=== PATIENT | male | born 1985 | race Caucasian/White ===

== ENCOUNTER 2017-08-02 16:40 | Emergency (ER) | payer BC ==
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
[2017-08-02] MEDS: Sodium Chloride 0.9% 1,000 ML IV ONE (18:00)
[2017-08-02] MEDS: Ondansetron 4 MG/2 ML SDV IVPUSH ONE (18:04)
[2017-08-02] MEDS: Morphine 2 MG/ML Syringe IVPUSH ONE (18:04)
[2017-08-02] MEDS: Ketorolac 30 MG/ML SDV IVPUSH ONE (18:27)
== END 2017-08-02 19:05 | disposition home or self-care (01) ==
LOC: KA.ED 16:40
DX: S40.011A Contusion of right shoulder, initial encounter (principal); S70.01XA Contusion of right hip, initial encounter; G44.319 Acute post-traumatic headache, not intractable; R07.81 Pleurodynia; F17.210 Nicotine dependence, cigarettes, uncomplicated; V86.95XA Unspecified occupant of 3- or 4- wheeled all-terrain vehicle (ATV) injured in nontraffic accident, initial encounter
CPT/HCPCS: 70450; 71101-RT; 72125; 73030-RT; 96361; 96374; 96375; 99284; J1885; J2270; J2405; J7030

== ENCOUNTER 2018-11-14 22:06 | Emergency (ER) | payer BC ==
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
[2018-11-14] MEDS ORDERED: Ketorolac 60 MG/2 ML SDV IM ONE (22:51)
--- NOTE | 2018-11-15 07:42 | CR ---
[id number] RAD/RAD Ribs Left W PA Chest Exam: RAD Ribs Left W PA Chest Clinical Data: TRAUMA COMPARISON: CORRELATION IS MADE WITH THE CHEST RADIOGRAPH OF AUGUST 02, 2017. FINDINGS: The lungs are clear. There is no pneumothorax. There is no obvious recent left rib fracture. The cardiomediastinal contour is stable. IMPRESSION: NEGATIVE EXAM. Zan Steven MD 11/15/18 0741 Thank you for allowing us to participate in the care of your patient.
--- NOTE | 2018-11-15 07:43 | CR ---
[id number] RAD/RAD Lumbar Spine 2-3V EXAM: AP AND LATERAL LUMBAR SPINE. INDICATION: TRAUMA COMPARISON: NO PREVIOUS SIMILAR EXAM IS AVAILABLE FOR COMPARISON. FINDINGS: No fracture is seen. There are mild degenerative changes at lumbosacral junction. 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 IMPRESSION: NO ACUTE FRACTURE OR SUBLUXATION. Zan Steven MD 11/15/18 0742 Thank you for allowing us to participate in the care of your patient.
--- NOTE | 2018-11-15 07:43 | CR ---
[id number] RAD/RAD Tibia Fibula Left EXAM: RAD Tibia Fibula Left CLINICAL DATA: TRAUMA COMPARISON: NO PREVIOUS SIMILAR EXAM IS AVAILABLE. FINDINGS: No fracture or dislocation is seen. There is no radiopaque foreign body in the soft tissues. There is no air in the soft tissues. There is no cortical thickening or periosteal reaction either. IMPRESSION: NEGATIVE PLAIN FILM EXAM. Zan Steven MD 11/15/18 0742 Thank you for allowing us to participate in the care of your patient.
--- NOTE | 2018-11-15 07:44 | CR ---
[id number] RAD/RAD Foot Left 2V EXAM: RAD Foot Left 2V CLINICAL DATA: TRAUMA COMPARISON: NO PREVIOUS SIMILAR EXAM IS AVAILABLE. FINDINGS: No fracture or dislocation is seen. There is no radiopaque foreign body in the soft tissues. There is no air in the soft tissues. There is no cortical thickening or periosteal reaction either. IMPRESSION: NEGATIVE PLAIN FILM EXAM. Zan Steven MD 11/15/18 0743 Thank you for allowing us to participate in the care of your patient.
== END 2018-11-14 23:15 | disposition home or self-care (01) ==
LOC: KA.ED 22:06
DX: S30.0XXA Contusion of lower back and pelvis, initial encounter (principal); S20.212A Contusion of left front wall of thorax, initial encounter; S90.02XA Contusion of left ankle, initial encounter; Z79.899 Other long term (current) drug therapy; W17.89XA Other fall from one level to another, initial encounter
CPT/HCPCS: 71101-LT; 72100; 73590-LT; 73620-LT; 81001; 96372; 99283-25; J1885

== ENCOUNTER 2020-04-26 09:50 | Emergency (ER) | payer BC, OTHER ==
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
--- NOTE | 2020-04-26 10:50 | CR ---
[id number] RAD/RAD Ankle Right 3V Min EXAM: 3 VIEWS RIGHT ANKLE. INDICATION: ANKLE PAIN. COMPARISON: None. DISCUSSION: No fracture, dislocation or other acute osseous abnormality. Soft tissue edema adjacent to the lateral malleolus. IMPRESSION: 1. No acute osseous abnormalities. Josef Mattson DO 04/26/20 1049 Thank you for allowing us to participate in the care of your patient.
== END 2020-04-26 11:00 | disposition home or self-care (01) ==
LOC: KA.ED 09:50
DX: S93.401A Sprain of unspecified ligament of right ankle, initial encounter (principal); V29.9XXA Motorcycle rider (driver) (passenger) injured in unspecified traffic accident, initial encounter
CPT/HCPCS: 73610-RT; 99283; 99283-25

== ENCOUNTER 2020-05-13 08:55 | Emergency (ER) | payer BC ==
--- NOTE | 2020-05-13 09:45 | EDM.PDOC ---
ED HPI GENERAL MEDICAL PROBLEM - General Chief Complaint: General Stated Complaint: FEELING ANXIOUS Time Seen by Provider: 05/13/20 09:25 Source of Information: Reports: Patient History Limitations: Reports: No Limitations - History of Present Illness INITIAL COMMENTS - FREE TEXT/NARRATIVE: 34 YO WM PRESENTS TO ER COMPLAINING OF FEELING FATIGUED WITH ASSOCIATED INTERMITTENT SHORTNESS OF BREATH, AND INTERMITTENT NUMBNESS TO LIPS, HANDS AND FEET X 4 DAYS. PT REPORTS HE WAS DIAGNOSED WITH COVID-19 3 WEEKS AGO AND HAS BEEN OFF QUARANTINE FOR THE LAST WEEK. PT DENIES FEVER/CHILLS, NO CHEST PAIN, NO NAUSEA/VOMITING/DIARRHEA. PT REPORTS HISTORY OF ANXIETY AND HAD BEEN ON ZYPREXA IN THE REMOTE PAST. PT CURRENTLY WITHOUT SYMPTOMS AND BELIEVES A LOT OF THIS IS ASSOCIATED WITH HIS ANXIETY. PT REPORTS HE WAS ALSO ON DECADRON AND JUST FINISHED A 5 DAY COURSE OVER THE WEEKEND. PT STATES HE WAS HAVING TROUBLE SLEEPING AND FEELING FUNNY WHILE ON THIS MEDICATION. Onset: Unknown/Unsure Duration: Week(s): (3) Location: Reports: Generalized Severity: Mild Improves with: Reports: None Worsens with: Reports: None Associated Symptoms: Reports: Cough, Malaise, Shortness of Breath. Denies: Chest Pain, Diaphoresis, Fever/Chills, Headaches, Loss of Appetite, Nausea/Vomiting, Rash, Syncope, Weakness - Related Data Allergies Allergy/AdvReac Type Severity Reaction Status Date / Time No Known Drug Allergies Allergy Cannot Verified 05/13/20 09:07 Remember Home Meds: Home Meds Ibuprofen [Motrin] 800 mg PO TID PRN #15 tablet 11/14/18 [Rx] dexAMETHasone [Dexamethasone] 6 mg PO DAILY 05/13/20 [History] Past Medical History - Past Health History Medical/Surgical History: Denies Medical/Surgical History HEENT History: Reports: None Respiratory History: Reports: Other (See Below) Gastrointestinal History: Reports: Other (See Below) Other Gastrointestinal History: colitis Psychiatric History: Reports: Anxiety, Depression, Panic Attack - Infectious Disease History Infectious Disease History: Reports: Chicken Pox - Past Surgical History HEENT Surgical History: Reports: Tonsillectomy GI Surgical History: Reports: None Social & Family History - Family History Family Medical History: No Pertinent Family History - Tobacco Use Tobacco Use Status *Q: Current Every Day Tobacco User Years of Tobacco use: 20 Packs/Tins Daily: 1 - Caffeine Use Caffeine Use: Reports: Coffee, Tea - Alcohol Use Days Per Week of Alcohol Use: 4 Number of Drinks Per Day: 3 Total Drinks Per Week: 12 - Recreational Drug Use Recreational Drug Use: No ED ROS GENERAL - Review of Systems Review Of Systems: See Below Constitutional: Reports: Malaise HEENT: Reports: No Symptoms Respiratory: Reports: Shortness of Breath Cardiovascular: Reports: No Symptoms Endocrine: Reports: No Symptoms GI/Abdominal: Reports: No Symptoms : Reports: No Symptoms Musculoskeletal: Reports: No Symptoms Skin: Reports: No Symptoms Neurological: Reports: Numbness. Denies: Dizziness, Pre-Existing Deficit, Trouble Speaking, Difficulty Walking, Weakness, Change in Speech Psychiatric: Reports: Anxiety. Denies: Depression Hematologic/Lymphatic: Reports: No Symptoms Immunologic: Reports: No Symptoms ED EXAM, GENERAL - Physical Exam Exam: See Below Exam Limited By: No Limitations General Appearance: Alert, WD/WN, No Apparent Distress Eye Exam: Bilateral Eye: PERRL Throat/Mouth: Normal Inspection, Normal Lips, Normal Teeth, Normal Gums, Normal Oropharynx, Normal Voice, No Airway Compromise Head: Atraumatic, Normocephalic Neck: Normal Inspection, Supple, Non-Tender, Full Range of Motion Respiratory/Chest: No Respiratory Distress, Lungs Clear, Normal Breath Sounds, No Accessory Muscle Use, Chest Non-Tender Cardiovascular: Normal Peripheral Pulses, Regular Rate, Rhythm, No Edema, No Gallop, No JVD, No Murmur, No Rub GI/Abdominal: Normal Bowel Sounds, Soft, Non-Tender, No Organomegaly, No Distention, No Abnormal Bruit, No Mass Back Exam: Normal Inspection, Full Range of Motion, NT Extremities: Normal Inspection, Normal Range of Motion, Non-Tender, Normal Capillary Refill, No Pedal Edema Neurological: Alert, Oriented, CN II-XII Intact, Normal Cognition, Normal Gait, Normal Reflexes, No Motor/Sensory Deficits Psychiatric: Normal Affect, Normal Mood Skin Exam: Warm, Dry, Intact, Normal Color, No Rash Lymphatic: No Adenopathy Course - Vital Signs Last Recorded V/S: Last Vital Signs Temp 37.1 C 05/13/20 09:02 Pulse 97 05/13/20 09:29 Resp 18 05/13/20 09:29 BP 134/89 05/13/20 09:29 Pulse Ox 94 L 05/13/20 09:29 - Radiology Interpretation Free Text/Narrative:: CXR- NAD Departure - Departure Time of Disposition: 10:16 Disposition: Home, Self-Care 01 Condition: Good Clinical Impression: Hyperglycemia, Anxiety Medication reaction Qualifiers: Encounter type: initial encounter Qualified Code(s): T50.905A - Adverse effect of unspecified drugs, medicaments and biological substances, initial encounter - Discharge Information Instructions: Hyperglycemia, [id number], Managing Anxiety, Adult, Screening for Type 2 Diabetes Referrals: Antoinette Parra MD [Primary Care Provider] - Forms: ED Department Discharge, ED Return to Work/School Form Additional Instructions: 1. DISCHARGE HOME 2. FOLLOW UP IN CLINIC FOR EVALUATION OF ELEVATED BLOOD GLUCOSE- NEED ADDITIONAL TESTING (HGBA1C) 3. CONSIDER GETTING BACK ON ZYPREXA FOR ANXIETY 4. OFFERED PATIENT ANTI-ANXIETY MEDICATION WHICH HE REFUSED AT THIS TIME 5. RETURN TO ER FOR WORSENING SYMPTOMS Sepsis Event Note (ED) - Evaluation Sepsis Screening Result: No Definite Risk - Focused Exam Vital Signs: Vital Signs Temp Pulse Resp BP Pulse Ox 05/13/20 09:29 97 18 134/89 94 L 05/13/20 09:02 37.1 C 115 H 20 146/94 H 96 - Assessment/Plan Assessment:: 1. HYPERGLYCEMIA 2. ANXIETY 3. MEDICATION REACTION Plan: 1. DISCHARGE HOME 2. FOLLOW UP IN CLINIC FOR EVALUATION OF ELEVATED BLOOD GLUCOSE- NEED ADDITIONAL TESTING (HGBA1C) 3. CONSIDER GETTING BACK ON ZYPREXA FOR ANXIETY 4. OFFERED PATIENT ANTI-ANXIETY MEDICATION WHICH HE REFUSED AT THIS TIME 5. RETURN TO ER FOR WORSENING SYMPTOMS
--- NOTE | 2020-05-13 09:48 | CR ---
[id number] RAD/RAD Chest PA And Lateral EXAM: RAD Chest PA And Lateral INDICATION: COVID. COMPARISON: October 2018. DISCUSSION: Cardiomediastinal silhouette is normal in size and contour. Lungs are clear. No pleural effusion or pneumothorax. IMPRESSION: Negative examination of the chest. Ronak Moreno MD 05/13/20 0947 Thank you for allowing us to participate in the care of your patient.
== END 2020-05-13 10:33 | disposition home or self-care (01) ==
LOC: KA.ED 08:55
DX: R20.0 Anesthesia of skin (principal); R06.02 Shortness of breath; R73.9 Hyperglycemia, unspecified; F41.9 Anxiety disorder, unspecified; F17.210 Nicotine dependence, cigarettes, uncomplicated; T38.0X5A Adverse effect of glucocorticoids and synthetic analogues, initial encounter
CPT/HCPCS: 71046; 82962; 99284; 99284-25